=== PATIENT | female | born 1995 | race Caucasian/White ===

== ENCOUNTER 2016-11-03 11:41 | Emergency (ER) | payer OTHER ==
[~2016-11-03] VITALS: Ht 157.5 cm; Wt 54.4 kg
[2016-11-03 12:00] VITALS: BP 118/65
--- NOTE | 2016-11-03 12:34 | RAD ---
Examination: 3 views of the right foot History: History of right lateral foot pain for one week Comparison: None available Findings: The alignment of the tarsal bones grossly appears unremarkable. The alignment of the tarsometatarsal joints, metatarsophalangeal joint grossly appears unremarkable. There is no acute fracture identified. Impression: No acute osseous findings.
--- NOTE | 2016-11-03 12:46 | PHYS DOC ---
Past Medical History Past Medical History: No Pertinent History Past Surgical History: Tonsillectomy Additional Past Surgical Histo: PLATE AND SCREWS IN BACK, ANKLE Alcohol Use: Rarely Drug Use: None Adult General Chief Complaint Chief Complaint: FOOT INJURY PAIN [facility] HPI Patient is a 21 year old female presents emergency department stating that she has right ankle issues. She states that she has had a fractured with plates and pins and screws in a in the past. She states that occasionally when the ankle starts hurting she walks more on the outside of her foot. She is here stating that she is eventually have a stress fracture along the fifth metatarsal area. She denies any injury she denies any trauma. She has not taken anything for pain and discomfort. She does state she has some numbness and tingling along the fifth toe on the right foot. Review of Systems Review of Systems Constitutional: Denies fever or chills [] Eyes: Denies change in visual acuity, redness, or eye pain [] HENT: Denies nasal congestion or sore throat [] Respiratory: Denies cough or shortness of breath [] Cardiovascular: No additional information not addressed in HPI [] GI: Denies abdominal pain, nausea, vomiting, bloody stools or diarrhea [] : Denies dysuria or hematuria [] Musculoskeletal: Denies back pain. Complaining of right foot pain Integument: Denies rash or skin lesions [] Neurologic: Denies headache, focal weakness or sensory changes [] Endocrine: Denies polyuria or polydipsia [] Allergies Allergies Allergies Coded Allergies Type Severity Reaction Last Updated Verified adhesive tape Allergy Unknown 11/03/16 Yes Physical Exam Physical Exam Constitutional: Well developed, well nourished, no acute distress, non-toxic appearance. [] HENT: Normocephalic, atraumatic, bilateral external ears normal, oropharynx moist, no oral exudates, nose normal. [] Eyes: PERRLA, EOMI, conjunctiva normal, no discharge. [] Neck: Normal range of motion, no tenderness, supple, no stridor. [] Cardiovascular:Heart rate regular rhythm Lungs & Thorax: No respiratory distress noted Skin: Warm, dry, no erythema, no rash. [] Back: No tenderness Extremities: Right fifth metatarsal tenderness, no cyanosis, no clubbing, ROM intact, no edema. No bruising no discoloration noted. Patient with good sensation noted Refill brisk less than 2 seconds. Peripheral pulses 2+. Neurologic: Alert and oriented X 3, normal motor function, normal sensory function, no focal deficits noted. [] Psychologic: Affect normal, judgement normal, mood normal. [] Current Patient Data Vital Signs Vital Signs Date Time Temp Pulse Resp B/P (MAP) Pulse Ox O2 Delivery O2 Flow Rate FiO2 11/03/16 12:00 98.5 95 16 98 Room Air 98.5 EKG EKG [] Radiology/Procedures Radiology/Procedures [facility] [address] [place] [address] IMAGING REPORT Signed PATIENT: DAO PAREEDS ACCOUNT: [id number] : 1995 LOCATION: ER AGE: 21 SEX: F EXAM STATUS: REG ER ORD. PHYSICIAN: EDITH FAY APRN REASON: pain and injury PROCEDURE: FOOT RIGHT 3V Examination: 3 views of the right foot History: History of right lateral foot pain for one week Comparison: None available Findings: The alignment of the tarsal bones grossly appears unremarkable. The alignment of the tarsometatarsal joints, metatarsophalangeal joint grossly appears unremarkable. There is no acute fracture identified. Impression: No acute osseous findings. DICTATED and SIGNED BY: OSMAN MCELROY MD DATE: 11/03/16 1231 CC: EDITH FAY APRN; NON,STAFF; UNKNOWN PCP NAME ~ [] Course & Med Decision Making Course & Med Decision Making Pertinent Labs and Imaging studies reviewed. (See chart for details) Radiology report was negative for any fractures. Patient was encouraged to use ice packs on 20 minutes off 20 minutes several times a day. She was also encouraged to use ibuprofen for pain and discomfort. Patient will be discharged home with any movement orthopedic in which she can follow-up with she continues to have pain and discomfort. Patient agrees with discharge instructions, treatment regimens and follow-up recommendations. [] Dragon Disclaimer Dragon Disclaimer This electronic medical record was generated, in whole or in part, using a voice recognition dictation system. Departure Departure Impression: Primary Impression: Right foot pain Disposition: HOME, SELF-CARE Condition: STABLE Referrals: UNKNOWN PCP NAME (PCP) KEATON QUIÑONEZ II, MD Patient Instructions: Foot Contusion, [id number] Additional Instructions: Activity as tolerated. You may try using an Ajith wrap to help with support and help with pain and discomfort. Ice packs on 20 minutes off 20 minutes several times a day. Elevation as much as possible. Follow-up with orthopedic as needed in the next week. Return back to emergency prior signs and symptoms of become worse EDITH FAY TRAIN DISPATCHER Nov 03, 2016 12:46
== END 2016-11-03 12:56 | disposition home or self-care (01) ==
LOC: ER 11:41
DX: M79.671 Pain in right foot (principal); R20.0 Anesthesia of skin; R20.2 Paresthesia of skin; Z87.81 Personal history of (healed) traumatic fracture; Z91.048 Other nonmedicinal substance allergy status
CPT/HCPCS: 73630; 99284